=== PATIENT | female | born 1950 | race Caucasian/White ===

== ENCOUNTER 2016-04-21 09:02 | Outpatient (CLI) ==
[2016-01-29 09:01] VITALS: BMI 48.0
[2016-04-21 09:53] LABS: BASOPHILS % (AUTO) 0.5 % (0.0-3.0); EOSINOPHILS # (AUTO) 0.3 K/ul (0.0-0.7); EOSINOPHILS % (AUTO) 3.2 % (0.0-7.0); HEMATOCRIT 41.6 % (37.0-47.0); HEMOGLOBIN 14.3 g/dl (12.0-16.0); IMMATURE GRANULOCYTE % (AUTO) 0.4 % (0.0-5.0); LYMPHOCYTES # (AUTO) 2.8 K/uL (0.60-3.4); LYMPHOCYTES % (AUTO) 34.6 (10.0-50.0); MEAN CORPUSCULAR HEMOGLOBIN 33.3 pg (27.0-31.0); MEAN CORPUSCULAR HGB CONC 34.4 (31.8-35.4); MEAN CORPUSCULAR VOLUME 96.7 fl (81.0-99.0); MONOCYTES # (AUTO) 0.4 K/uL (0.4-2.0); MONOCYTES % (AUTO) 5.4 (0-10); NEUTROPHILS # (AUTO) 4.6 K/ul (2.0-6.9); NEUTROPHILS % (AUTO) 55.9; PLATELET COUNT 188 10^3/uL (140-440); WHITE BLOOD COUNT 8.13 K/ul (4.6-10.2)
[2016-04-21 10:32] LABS: ALBUMIN 3.7 g/dL (3.4-5.0); ALBUMIN/GLOBULIN RATIO 1.12; ANION GAP 15.4; BILIRUBIN,TOTAL 0.53 mg/dL (0.00-1.20); BUN/CREATININE RATIO 20.23; CALCIUM 9.1 mg/dL (8.2-10.2); CHOL/HDL RATIO 4.4 (4.5-5.5); CREATININE 1.68 mg/dL (0.60-1.30); POTASSIUM 4.4 mmol/L (3.5-5.10)
== END 2016-04-21 09:03 | disposition home or self-care (01) ==
LOC: LAB 09:02
PROVIDERS: ATTEND Physician Assistant
DX: E03.9 Hypothyroidism, unspecified (principal); E11.40 Type 2 diabetes mellitus with diabetic neuropathy, unspecified; E78.2 Mixed hyperlipidemia; Z20.5 Contact with and (suspected) exposure to viral hepatitis
CPT/HCPCS: 36415; 80053; 80061; 82043; 83036; 84443; 85025

== ENCOUNTER 2016-09-18 09:00 | Outpatient (CLI) ==
[2016-01-29 09:01] VITALS: BMI 48.0
[2016-09-18 09:41] LABS: ALBUMIN 3.6 g/dL (3.4-5.0); ALBUMIN/GLOBULIN RATIO 0.97; ANION GAP 16.5; BILIRUBIN,TOTAL 0.27 mg/dL (0.00-1.20); BUN/CREATININE RATIO 14.75; CALCIUM 9.5 mg/dL (8.2-10.2); CREATININE 1.22 mg/dL (0.60-1.30); POTASSIUM 4.5 mmol/L (3.5-5.10); TOTAL PROTEIN 7.3 g/dL (5.8-8.1)
== END 2016-09-18 09:01 | disposition home or self-care (01) ==
LOC: LAB 09:00
PROVIDERS: ATTEND Physician Assistant
DX: E11.40 Type 2 diabetes mellitus with diabetic neuropathy, unspecified (principal); N28.9 Disorder of kidney and ureter, unspecified
CPT/HCPCS: 36415; 80053; 83036

== ENCOUNTER 2016-10-13 10:28 | Emergency (ER) ==
[2016-10-13 10:33] VITALS: BP 168/72; TEMP 98.8; BMI 48.9
--- NOTE | 2016-10-13 10:41 | ED.PDOC ---
General ED Provider: Dr. COCO JESSICA JR Chief Complaint: Sore Throat Stated Complaint: her throat hurt yesterday; woke up worse, daughter told her throat had white spots, right ear pain also[End]98.8 89 20 92% 168/72 11/19[End] Time Seen by Physician: 10:44 Mode of Arrival: Walk-In Information Source: Patient Exam Limitations: No limitations Primary Care Provider: DINA SUERO Nursing and Triage Documentation Reviewed and Agree: No Review of Systems - Review Of Systems Constitutional: Reports: Malaise Eyes: Reports: No symptoms Ears, Nose, Mouth, Throat: Reports: Ear pain (right), Throat pain Respiratory: Reports: No symptoms Cardiac: Reports: No symptoms GI: Reports: No symptoms : Reports: No symptoms Musculoskeletal: Reports: No symptoms Skin: Reports: Lesions Neurological: Reports: No symptoms Endocrine: Reports: No symptoms Hematologic/Lymphatic: Reports: No symptoms All Other Systems: Other Past Medical History - Past Medical History Endocrine: Reports: DM 2, Hypothyroid, Hyperthyroid, Dyslipidemia Cardiovascular: Reports: Hypertension Respiratory: Reports: Asthma Hematological: Reports: None Gastrointestinal: Reports: GERD Genitourinary: Reports: CKD Neuro/Psych: Reports: Anxiety, Depression Musculoskeletal: Reports: Arthritis Cancer: Reports: None Last Menstrual Period: n/a - Surgical History General Surgical History: Reports: Cholecystectomy, Orthopedic (Laproscopy of the right knee. ), Other (Hemorroidectomy, Femoral stents Bilatrally, thyroid) - Family History Family History: Reports: None - Social History Smoking Status: Current every day smoker Hx Substance Use: No Alcohol Screening: None Physical Exam - Physical Exam Appearance: Well-appearing, Obese Pain Distress: Moderate Eyes: SISI, EOMI, Conjunctiva clear ENT: Nose normal, Erythema (right eac red with dull site posteriorly?trauma no discharge), Exudate (difficult to visualize note white exudate near uvula tender nodes near mandibular angle) Neck: Supple Respiratory: Airway patent, Breath sounds clear, Breath sounds equal, Respirations nonlabored Cardiovascular: RRR, Pulses normal, No rub, No murmur GI/: Soft, Nontender, No masses, Bowel sounds normal, No Organomegaly Musculoskeletal: Normal strength, ROM intact, No edema, No calf tenderness Skin: Warm, Dry, Normal color Neurological: Sensation intact, Motor intact, Reflexes intact, Cranial nerves intact, Alert, Oriented Psychiatric: Affect appropriate, Mood appropriate Critical Care Note - Critical Care Note Total Time (mins): 0 Course - Course Orders, Labs, Meds: Orders Category Date Time Status STREP SCREEN Stat LAB 10/13/16 10:30 Uncollected Vital Signs: Temp Pulse Resp BP Pulse Ox 10/13/16 10:29 98.8 F 89 20 168/72 H 92 L Departure - Departure Time of Disposition: 10:52 Disposition: HOME SELF-CARE Discharge Problem: Sore throat symptom Instructions: Pharyngitis (ED) Condition: Good Pt referred to PMD for follow-up: Yes Additional Instructions: strp screen is negative call PMD tomorrow to check on confirmatory test antibiotic until gone- clindamycin for 10 days may visit with others after 24 hours of antibiotics if no fever Tylenol for pain 650mg four times a day increase fluids ear drops for two days after pain resolved recheck PMD 2 weeks sooner if fever Prescriptions: Clindamycin HCl 300 mg PO QID #40 capsule Neomycin/Polymyxin B/Hc Otic [Cortisporin Otic Susp] 4 drop OT Q6H #1 bottle Allergies/Adverse Reactions: Allergies aspirin Allergy (Verified 10/13/16 10:33) codeine Allergy (Verified 10/13/16 10:33) NSAIDS (Non-Steroidal Anti-Inflamma Allergy (Verified 10/13/16 10:33) Penicillins Allergy (Verified 10/13/16 10:33) sumatriptan [From Imitrex] Adverse Reaction (Verified 10/13/16 10:33) gel caps and coating on pills Adverse Reaction (Uncoded 10/13/16 10:34) Home Medications: Ambulatory Orders Buspirone HCl 10 mg PO BID #60 12/02/15 Chlordiazepoxide HCl [Librium] 25 mg PO QID #120 12/02/15 Duloxetine HCl [Cymbalta] 30 mg PO DAILY #30 12/02/15 Duloxetine HCl [Cymbalta] 60 mg PO DAILY #30 12/02/15 Albuterol Sulfate [Proair Respiclick] 90 mcg IH BID 12/16/15 Clopidogrel Bisulfate [Plavix] 75 mg PO DAILY 12/16/15 Fluticasone/Salmeterol [Advair 250-50 Diskus] 1 each IH BID 12/16/15 Furosemide [Lasix] 40 mg PO BID 12/16/15 Gabapentin 600 mg PO DAILY 12/16/15 Hydrocodone/Acetaminophen [Hydrocodon-Acetaminoph 7.5-325] 1 each PO BID PRN 08/25 Imdur 30 mg PO DAILY 12/16/15 Insulin Aspart [Novolog Flexpen] 100 unit SQ TID 12/16/15 Insulin Glargine,Hum.rec.anlog [Lantus] 100 unit SQ BEDTIME vial 12/16/15 Levothyroxine Sodium 88 mcg PO DAILY 12/16/15 Omeprazole Magnesium [Prilosec Otc] 20 mg PO DAILY 12/16/15 Potassium Chloride 10 meq PO DAILY 12/16/15 Pravastatin Sodium [Pravachol] 80 mg PO DAILY 12/16/15 Quinapril HCl [Accupril] 40 mg PO DAILY 12/16/15 Vit B Cmplx 3/FA/Vit C/Biotin [Denise-Alfa Rx Tablet] 1 each PO DAILY 12/16/15 Clindamycin HCl 300 mg PO QID #40 capsule 10/13/16 Neomycin/Polymyxin B/Hc Otic [Cortisporin Otic Susp] 4 drop OT Q6H #1 bottle 06/26
== END 2016-10-13 12:34 | disposition home or self-care (01) ==
LOC: ED 10:28
DX: J02.9 Acute pharyngitis, unspecified (principal); H92.01 Otalgia, right ear; F17.210 Nicotine dependence, cigarettes, uncomplicated
CPT/HCPCS: 87651; 87880; 99282

== ENCOUNTER 2016-11-17 10:07 | Emergency (ER) ==
[2016-11-17 10:15] VITALS: BP 167/73; TEMP 98.7; BMI 48.7
--- NOTE | 2016-11-17 10:27 | ED.PDOC ---
General ED Provider: Dr. ENID WU Chief Complaint: Earache Stated Complaint: Right ear itching and pain. Tx'd for otitis externa 4 days ago with neosporin/cortisone ear drops. Previous sx improved but by day 3, the ear was itching and painful so d/c'd drops. Sx persist today. Time Seen by Physician: 10:21 Mode of Arrival: Walk-In Information Source: Patient Exam Limitations: No limitations Primary Care Provider: DINA SUERO Nursing and Triage Documentation Reviewed and Agree: Yes EENT Complaint Exam - Ear Complaint/Exam Onset/Duration: 3 dsyd Symptoms Are: Still present Timing: Constant Initial Severity: Mild Current Severity: Moderate Character: Reports: Aching pain (pruritis of right ear canal) Aggravating: Reports: None Alleviating: Reports: None Associated Signs and Symptoms: Reports: Pain to external ear Related History: Reports: Meds used, Drops used (see HPI) Ear Surgical History: None Vesicles to External Pinna: No Vesicles to Tragus: No TMJ Tenderness: None Mastoid Tenderness: None Tragal Tenderness: None External Canal: Erythema, Tenderness, Swelling Differential Diagnoses: Otitis Externa (allergic reaction) Review of Systems - Review Of Systems Constitutional: Reports: No symptoms Ears, Nose, Mouth, Throat: Reports: Ear pain (right ear pain and pruritis) Respiratory: Reports: No symptoms Cardiac: Reports: No symptoms GI: Reports: No symptoms Neurological: Reports: No symptoms All Other Systems: Reviewed and Negative Past Medical History - Past Medical History Previously Healthy: Yes Endocrine: Reports: DM 2, Hypothyroid, Hyperthyroid, Dyslipidemia Cardiovascular: Reports: Hypertension Respiratory: Reports: Asthma Hematological: Reports: None Gastrointestinal: Reports: GERD Genitourinary: Reports: CKD Neuro/Psych: Reports: Anxiety, Depression Musculoskeletal: Reports: Arthritis Cancer: Reports: None Last Menstrual Period: menopause Other Pertinent Past Medical History: htn dm thy chol asth gerd kd depr anx ath - Surgical History General Surgical History: Reports: Cholecystectomy, Orthopedic (Laproscopy of the right knee. ), Other (Hemorroidectomy, Femoral stents Bilatrally, thyroid) - Family History Family History: Reports: None - Social History Smoking Status: Current every day smoker Hx Substance Use: No Alcohol Screening: None Lives: Alone - Immunizations Tetanus Shot up to Date: No Influenza Vaccine within 12 Months: No Pneumococcal Vaccine up to Date: No Physical Exam - Physical Exam Appearance: Well-appearing, No pain distress, Well-nourished, Obese Ill-appearing: None Pain Distress: Mild ENT: Nose normal, Oropharynx normal, Erythema (Right EAC is tender to touch, eryth and swollen) Respiratory: Airway patent, Breath sounds clear, Breath sounds equal, Respirations nonlabored Cardiovascular: RRR, Pulses normal, No rub, No murmur Skin: Warm, Dry, Normal color Psychiatric: Affect appropriate, Mood appropriate Critical Care Note - Critical Care Note Total Time (mins): 0 Course - Course Vital Signs: Temp Pulse Resp BP Pulse Ox 11/17/16 10:07 98.7 F 84 20 167/73 H 94 L Departure - Departure Time of Disposition: 10:50 Disposition: HOME SELF-CARE Discharge Problem: Right otitis externa, Allergic dermatitis Instructions: Otitis Externa (ED) Condition: Good Pt referred to PMD for follow-up: No (see PCP if no better in 3 days) Prescriptions: Ciprofloxacin/Dexamethasone [Ciprodex Otic Suspension] 4 drop OT Q12HR #60 drops.susp Allergies/Adverse Reactions: Allergies aspirin Allergy (Verified 11/17/16 10:17) codeine Allergy (Verified 11/17/16 10:17) NSAIDS (Non-Steroidal Anti-Inflamma Allergy (Verified 11/17/16 10:17) Penicillins Allergy (Verified 11/17/16 10:17) morphine Adverse Reaction (Verified 11/17/16 10:17) sumatriptan [From Imitrex] Adverse Reaction (Verified 11/17/16 10:17) gel caps and coating on pills Adverse Reaction (Uncoded 11/17/16 10:17) Home Medications: Ambulatory Orders Buspirone HCl 10 mg PO BID #60 12/02/15 Chlordiazepoxide HCl [Librium] 25 mg PO QID #120 12/02/15 Duloxetine HCl [Cymbalta] 30 mg PO DAILY #30 12/02/15 Duloxetine HCl [Cymbalta] 60 mg PO DAILY #30 12/02/15 Clopidogrel Bisulfate [Plavix] 75 mg PO DAILY 12/16/15 Fluticasone/Salmeterol [Advair 250-50 Diskus] 2 puff IH BID PRN 12/16/15 Furosemide [Lasix] 40 mg PO DAILY 12/16/15 Gabapentin 400 mg PO BID 12/16/15 Hydrocodone/Acetaminophen [Hydrocodon-Acetaminoph 7.5-325] 10 mg PO TID Imdur 30 mg PO DAILY 12/16/15 Insulin Aspart [Novolog Flexpen] 30 unit SQ TIDWM 12/16/15 Levothyroxine Sodium 88 mcg PO DAILY 12/16/15 Omeprazole Magnesium [Prilosec Otc] 20 mg PO DAILY 12/16/15 Potassium Chloride 10 meq PO DAILY 12/16/15 Pravastatin Sodium [Pravachol] 80 mg PO DAILY 12/16/15 Quinapril HCl [Accupril] 40 mg PO BID 12/16/15 Vit B Cmplx 3/FA/Vit C/Biotin [Denise-Alfa Rx Tablet] 1 each PO DAILY 12/16/15 Albuterol Sulfate [Ventolin Hfa] 18 gm IH Q2HR PRN 10/13/16 Clindamycin HCl 300 mg PO QID #40 capsule 10/13/16 Insulin Glargine,Hum.rec.anlog [Lantus Solostar] 30 unit SQ BEDTIME 10/13/16 Metoprolol Tartrate [Lopressor] 12.5 mg PO BID 10/13/16 Neomycin/Polymyxin B/Hc Otic [Cortisporin Otic Susp] 4 drop OT Q6H #1 bottle 06/26 Ciprofloxacin/Dexamethasone [Ciprodex Otic Suspension] 4 drop OT Q12HR #60 drops.susp 11/17/16
== END 2016-11-17 10:54 | disposition home or self-care (01) ==
LOC: ED 10:07
DX: H60.91 Unspecified otitis externa, right ear (principal); L23.9 Allergic contact dermatitis, unspecified cause; F17.210 Nicotine dependence, cigarettes, uncomplicated
CPT/HCPCS: 99282

== ENCOUNTER 2016-12-23 09:24 | Outpatient (CLI) | payer OTHER ==
[2016-12-24 05:46] LABS: URINE CREATININE 94.6 mg/dL (Not Estab.); URINE TOTAL PROTEIN 35.1 mg/dL (Not Estab.)
== END 2016-12-23 09:25 | disposition home or self-care (01) ==
LOC: LAB 09:24
PROVIDERS: ATTEND Internal Medicine
DX: N17.9 Acute kidney failure, unspecified (principal); R60.9 Edema, unspecified; E87.5 Hyperkalemia; I10 Essential (primary) hypertension; D64.9 Anemia, unspecified; E83.49 Other disorders of magnesium metabolism; E87.70 Fluid overload, unspecified
CPT/HCPCS: 82570; 84156

== ENCOUNTER 2017-10-24 08:42 | Outpatient (CLI) | END 2017-10-24 08:43 | disposition home or self-care (01) | LOC: LAB 08:42 | PROVIDERS: ATTEND Physician Assistant | DX: E78.5 Hyperlipidemia, unspecified (principal); E11.40 Type 2 diabetes mellitus with diabetic neuropathy, unspecified; I10 Essential (primary) hypertension; E66.9 Obesity, unspecified; Z79.4 Long term (current) use of insulin | CPT/HCPCS: 36415; 80053; 80061; 82043; 83036; 84443; 85025 ==

== ENCOUNTER 2018-03-08 15:59 | Outpatient (CLI) | END 2018-03-08 16:00 | disposition home or self-care (01) | LOC: FCC-LAB 15:59 | PROVIDERS: ATTEND Nurse Practitioner Family | DX: E03.9 Hypothyroidism, unspecified (principal); I10 Essential (primary) hypertension; E11.9 Type 2 diabetes mellitus without complications | CPT/HCPCS: 36415; 80053; 83036; 84443; 85025 ==